=== PATIENT | male | born 1990 | race American Indian/Alaskan Native ===

== ENCOUNTER 2018-08-13 17:17 | Emergency (ER) | payer SELFPAY ==
[2018-08-13 17:49] VITALS: BP 146/79
[2018-08-13] MEDS ORDERED: NORCO 5/325 PO STA (17:49)
--- NOTE | 2018-08-13 17:49 | Emergency Department Report ---
Blank Doc - Documentation Documentation: 27 y/o male presents to ED for staple removal. has 48 ted to remove
--- NOTE | 2018-08-13 19:04 | Emergency Department Report ---
Suture/Staple Removal - [facility] Chief Complaint: Recheck/Abnormal Lab/Rx Stated Complaint: STAPLE REMOVED RT LEG Time Seen by Provider: 08/13/18 17:46 Wound Location: right hip x 49 ted ED Review of Systems ROS: Stated complaint: STAPLE REMOVED RT LEG Other details as noted in HPI Constitutional: denies: chills, fever Eyes: denies: eye pain, eye discharge, vision change ENT: denies: ear pain, throat pain Respiratory: denies: cough, shortness of breath, wheezing Cardiovascular: denies: chest pain, palpitations Endocrine: no symptoms reported Gastrointestinal: denies: abdominal pain, nausea, diarrhea Genitourinary: denies: urgency, dysuria Musculoskeletal: denies: back pain, joint swelling, arthralgia Skin: other (right hip and thigh ted) Neurological: denies: headache, weakness, paresthesias Psychiatric: denies: anxiety, depression Hematological/Lymphatic: denies: easy bleeding, easy bruising ED Past Medical Hx - Past Medical History Previous Medical History?: No - Surgical History Past Surgical History?: Yes Additional Surgical History: snow placement - Social History Smoking Status: Never Smoker Substance Use Type: None - Medications Home Medications: Home Medications Medication Instructions Recorded Confirmed Last Taken Type Ibuprofen 800 mg PO TID PRN #30 tablet 08/13/18 Unknown Rx Suture Removal Exam - Exam General: Vital signs noted. No distress. Alert and acting appropriately. Wound: No Pathologic Erythema, No Tenderness, No Drainage, No Pus, No Wound Dehiscence Other Systems: All other systems reviewed and are unremarkable. ED Course Vital Signs 08/13/18 17:46 Temperature 98.6 F Pulse Rate 88 Respiratory 16 Rate Blood Pressure 146/79 [Left] O2 Sat by Pulse 100 Oximetry ED Recheck MDM - Differential Diagnosis Suture/Staple Removal - Medical Decision Making right hip and thigh staple removed intact wound is healed no erythema no pain no drainage no fever no chills no symptoms of infection. Critical care attestation.: If time is entered above; I have spent that time in minutes in the direct care of this critically ill patient, excluding procedure time. ED Disposition Clinical Impression: Encounter for staple removal Disposition: DC-01 TO HOME OR SELFCARE Is pt being admited?: No Does the pt Need Aspirin: No Condition: Stable Instructions: Staple Care (ED) Prescriptions: Ibuprofen 800 mg PO TID PRN #30 tablet PRN Reason: pain Referrals: KESHIA ELLIOTT MD [Staff Physician] - 3-5 Days Forms: Work/School Release Form(ED) Time of Disposition: 19:12
== END 2018-08-13 19:40 | disposition home or self-care (01) ==
LOC: ED 17:17
DX: Z48.01 Encounter for change or removal of surgical wound dressing (principal); T14.8XXD Other injury of unspecified body region, subsequent encounter